=== PATIENT | male | born 1955 | race Caucasian/White ===

== ENCOUNTER → 2017-02-09 | Outpatient (CLI) | payer OTHER ==
[~2017-02-09] MED LIST: ASPI-496 PO; ATEN50TA41 PO; ATOR10TA PO; CHOL2000 PO; CYCL-259 PO; DIAZ5TAB PO; ESOM40CA PO; FENO145T32 PO; HYDR-3307 PO; LISI-170 PO; OMEG1CAP2 PO; OMNIPAQUE 350 MG/ML, 100ML BOTTLE ONE
== END | disposition home or self-care (01) ==
LOC: CFH 09:47
PROVIDERS: ATTEND Nurse Practitioner Primary Care
DX: K40.20 Bilateral inguinal hernia, without obstruction or gangrene, not specified as recurrent (principal); K57.32 Diverticulitis of large intestine without perforation or abscess without bleeding; E55.9 Vitamin D deficiency, unspecified; E78.2 Mixed hyperlipidemia; I10 Essential (primary) hypertension; Z90.49 Acquired absence of other specified parts of digestive tract; Z98.1 Arthrodesis status; Z98.890 Other specified postprocedural states
CPT/HCPCS: 74177; Q9967

== ENCOUNTER → 2017-08-17 | Outpatient (CLI) | payer OTHER ==
[~2017-08-17] MED LIST changes: -OMNIPAQUE 350 MG/ML, 100ML BOTTLE ONE
== END | disposition home or self-care (01) ==
LOC: CFH 14:47
PROVIDERS: ATTEND Physician Assistant Medical
DX: R13.12 Dysphagia, oropharyngeal phase (principal); K21.9 Gastro-esophageal reflux disease without esophagitis; I10 Essential (primary) hypertension; E78.00 Pure hypercholesterolemia, unspecified
CPT/HCPCS: 74220

== ENCOUNTER → 2017-10-25 | Outpatient (CLI) | payer OTHER ==
[~2017-10-25] MED LIST changes: +OMNIPAQUE 350 MG/ML, 100ML BOTTLE ONE
== END ==
LOC: RAD 13:35
PROVIDERS: ATTEND Physician Assistant Medical
DX: K40.20 Bilateral inguinal hernia, without obstruction or gangrene, not specified as recurrent (principal); A04.71 Enterocolitis due to Clostridium difficile, recurrent
CPT/HCPCS: 74177; Q9967

== ENCOUNTER 2019-04-29 09:50 | Outpatient (CLI) | payer MEDICARE, OTHER ==
[~2019-04-29 09:50] MED LIST changes: +AMLO10TA8 PO; +APIX5TAB PO; +CARV6.252 PO; +CHOL5000 PO; +CINN500C2 PO; -HYDR-3307 PO; +HYDR-36 PO; +LOSA50TA14 PO; +MAGN400T36 PO; +OMEP-110 PO; -OMNIPAQUE 350 MG/ML, 100ML BOTTLE ONE; +POTA99TA2 PO; +UBID100C41 PO
[2019-04-29] MEDS ORDERED: OMNIPAQUE 350 MG/ML, 150 ML BOTTLE ONE (15:00)
[2019-05-06] MEDS ORDERED: Cinnamon PO (06:41)
[2019-05-06] MEDS ORDERED: POTA90TA2 PO (06:42)
[2019-05-06] MEDS ORDERED: Magnesium PO (06:43)
== END 2019-04-29 23:59 | disposition home or self-care (01) ==
LOC: CFH 09:50
PROVIDERS: ATTEND Internal Medicine Cardiovascular Disease
DX: I48.91 Unspecified atrial fibrillation (principal); F12.11 Cannabis abuse, in remission; I49.3 Ventricular premature depolarization; R22.32 Localized swelling, mass and lump, left upper limb; Z72.89 Other problems related to lifestyle; Z82.49 Family history of ischemic heart disease and other diseases of the circulatory system; Z82.5 Family history of asthma and other chronic lower respiratory diseases
CPT/HCPCS: 71046; 75572; Q9967

== ENCOUNTER 2019-08-27 09:52 | Outpatient (CLI) | payer MEDICARE, OTHER ==
[~2019-08-27 09:52] MED LIST changes: +AMLO-150 PO; +Cinnamon PO; +Magnesium PO; +POTA90TA2 PO; +SOTA80TA18 PO
== END 2019-08-27 23:59 | disposition home or self-care (01) ==
LOC: CFH 09:52
PROVIDERS: ATTEND Nurse Practitioner
DX: J84.10 Pulmonary fibrosis, unspecified (principal); I25.10 Atherosclerotic heart disease of native coronary artery without angina pectoris; I77.810 Thoracic aortic ectasia; I70.0 Atherosclerosis of aorta; M51.34 Other intervertebral disc degeneration, thoracic region; J98.4 Other disorders of lung
CPT/HCPCS: 71250